=== PATIENT | female | born 1970 | race Caucasian/White ===

== ENCOUNTER → 2021-04-21 | Outpatient (CLI) | payer OTHER ==
[2021-04-21 16:26] LABS: HEMOGLOBIN 13.6 gm/dl (12.3-15.3); RED BLOOD COUNT 4.28 M/UL (4.00-5.10); WHITE BLOOD COUNT 10.6 K/UL (4.5-11.0)
[2021-04-21 16:47] LABS: BUN/CREATININE RATIO 13 (0-10)
[2021-04-23 07:11] LABS: HBSAG SCREEN Negative (Negative); HEP B CORE AB, TOT Negative (Negative); RHEUMATOID ARTHRITIS FACTOR 74.2 IU/mL (0.0-13.9)
[2021-04-24 18:14] LABS: QUANTIFERON MITOGEN VALUE >10.00 IU/mL (.); QUANTIFERON TB2 AG VALUE 0.02 IU/mL (.); QUANTIFERON-TB GOLD PLUS Negative (Negative)
[2021-04-26 18:15] LABS: HCV AB >11.0 (0.0-0.9); HCV LOG10 6.378 (.); HEPATITIS C GENOTYPE 1a (.); HEPATITIS C QUANTITATION 2390000 IU/mL (.)
== END ==
LOC: LAB 15:02
PROVIDERS: Internal Medicine
DX: M54.89 Other dorsalgia (principal); D89.89 Other specified disorders involving the immune mechanism, not elsewhere classified; R76.0 Raised antibody titer; M25.50 Pain in unspecified joint; R74.01 Elevation of levels of liver transaminase levels; R70.0 Elevated erythrocyte sedimentation rate; L98.9 Disorder of the skin and subcutaneous tissue, unspecified; Z79.899 Other long term (current) drug therapy; M47.816 Spondylosis without myelopathy or radiculopathy, lumbar region
CPT/HCPCS: 72202; 80053; 82728; 83520; 85025; 85652; 86140; 86200; 86431; 86704; 86803; 87340